=== PATIENT | female | born 1955 | race Caucasian/White ===

== ENCOUNTER → 2017-09-30 | Outpatient (CLI) | payer BC ==
--- NOTE | 2017-09-30 17:11 | ECHOCARDIOGRAM REPORT ---
*NOTICE TO RECEIVING LIBERTARIAN AGENCY This information is strictly Confidential and protected under [place] law. [place] law prohibits you from making any further disclosure of this information unless further disclosure is expressly permitted by the written consent of the person to whom it pertains or is authorized by law. A general authorization for the release of medical or other information is not sufficient for this purpose. Hospital accepts no responsibility if the information is made available to any other person, INCLUDING THE PATIENT. Interpretation Summary * Name: MARY FREEMAN Study Date: 09/30/2017 12:59 PM * Patient Location: [facility] HR: 76 * : 1955 (M/d/yyyy) Gender: Female Height: 61 in * Age: 62 yrs Ethnicity: [place] Weight: 165 lb * Ordering Physician: Trena Boone * Referring Physician: Trena Boone * Performed By: Machelle Mcintyre RDCS * * Reason For Study: MURMUR * BSA: 1.7 m2 * -- Conclusions -- * 1. Normal left ventricular size and systolic function. EF 55-60%. No regional wall motion abnormalities visualized. No left ventricular hypertrophy. Type I diastolic dysfunction. * 2. No significant valvular abnormalities. * 3. Normal estimated right ventricular systolic pressure; RVSP 18 mmHg. * 4. No prior study available for comparison. Procedure Details * A complete two-dimensional transthoracic echocardiogram was performed (2D, M-mode, Doppler and color flow Doppler). Left Ventricle * Normal left ventricular size and systolic function. EF 55-60%. No regional wall motion abnormalities visualized. No left ventricular hypertrophy. Type I diastolic dysfunction. Right Ventricle * The right ventricle is normal in size and function. * The right ventricular systolic function is normal as assessed by tricuspid annular plane systolic excursion (TAPSE) (normal >1.5 cm). Atria * The left atrial size is normal. * Right atrial size is normal. * There is no evidence of atrial septal defect, but resolution does not allow assessment for a patent foramen ovale. Mitral Valve * The mitral valve is grossly normal. * There is no mitral valve stenosis. * There is trace mitral regurgitation. Tricuspid Valve * The tricuspid valve is not well visualized, but is grossly normal. * There is no tricuspid stenosis. * There is trace tricuspid regurgitation. Aortic Valve * The aortic valve is trileaflet. * No hemodynamically significant valvular aortic stenosis. * No aortic regurgitation is present. Pulmonic Valve * The pulmonary valve is inadequately visualized, but the Doppler data is adequate for interpretation. * There is no pulmonic valvular stenosis. * There is no significant pulmonary regurgitation. Great Vessels * The aortic root is normal size. * Ascending aorta of normal dimension * Normal pulmonary venous flow pattern. Pericardium/Pleural * There is no pericardial effusion. Great Vessels * Normal inferior vena cava size and collapsability with sniff indicates a normal right atrial pressure of 3 mmHg MMode 2D Measurements and Calculations IVSd 1.1 cm IVSs 1.3 cm LVIDd 4.7 cm LVIDs 3.2 cm LVPWd 0.78 cm LVPWs 1.6 cm IVS/LVPW 1.4 FS 31.1 % EDV(Teich) 99.9 ml ESV(Teich) 41.1 ml EF(Teich) 58.8 % EDV(cubed) 100.6 ml ESV(cubed) 32.9 ml EF(cubed) 67.3 % % IVS thick 15.8 % % LVPW thick 99.8 % LV mass(C)d 152.7 grams LV mass(C)dI 87.7 grams/m\S\2 LV mass(C)s 160.8 grams LV mass(C)sI 92.4 grams/m\S\2 CO(Teich) 4.4 l/min CI(Teich) 2.5 l/min/m\S\2 SV(Teich) 58.7 ml SI(Teich) 33.7 ml/m\S\2 CO(cubed) 5.1 l/min CI(cubed) 2.9 l/min/m\S\2 SV(cubed) 67.7 ml SI(cubed) 38.9 ml/m\S\2 Ao root diam 3.0 cm Ao root area 7.2 cm\S\2 ACS 0.65 cm LA dimension 3.3 cm asc Aorta Diam 2.8 cm LA/Ao 1.1 LVOT diam 2.0 cm LVOT area 3.1 cm\S\2 LVAd ap4 31.1 cm\S\2 LVLd ap4 8.1 cm EDV(MOD-sp4) 97.8 ml LVAs ap4 17.5 cm\S\2 LVLs ap4 6.4 cm ESV(MOD-sp4) 39.5 ml EF(MOD-sp4) 59.6 % LVAd ap2 23.5 cm\S\2 LVLd ap2 6.8 cm EDV(MOD-sp2) 67.7 ml LVAs ap2 13.2 cm\S\2 LVLs ap2 5.3 cm ESV(MOD-sp2) 27.7 ml EF(MOD-sp2) 59.1 % CO(MOD-sp4) 4.4 l/min CI(MOD-sp4) 2.5 l/min/m\S\2 SV(MOD-sp4) 58.3 ml SI(MOD-sp4) 33.5 ml/m\S\2 CO(MOD-sp2) 3.0 l/min CI(MOD-sp2) 1.7 l/min/m\S\2 SV(MOD-sp2) 40.0 ml SI(MOD-sp2) 23.0 ml/m\S\2 Doppler Measurements and Calculations MV E max jimmy 79.5 cm/sec MV A max jimmy 99.0 cm/sec MV E/A 0.80 MV dec time 0.20 sec Ao V2 max 150.7 cm/sec Ao max PG 9.1 mmHg Ao max PG (full) 5.9 mmHg NATHAN(V,A) 1.8 cm\S\2 NATHAN(V,D) 1.8 cm\S\2 LV V1 max PG 3.2 mmHg LV V1 max 88.8 cm/sec TV E max jimmy 51.9 cm/sec PA V2 max 74.7 cm/sec PA max PG 2.2 mmHg TR max jimmy 209.0 cm/sec RVSP(TR) 20.5 mmHg RAP systole 3.0 mmHg
== END | disposition home or self-care (01) ==
LOC: C.CPL 12:48
PROVIDERS: ATTEND Physician Assistant
DX: R01.1 Cardiac murmur, unspecified (principal)